=== PATIENT | female | born 1950 | race Caucasian/White ===

== ENCOUNTER 2021-07-03 13:50 | Inpatient (IN) | payer MEDICARE, SELFPAY ==
[2021-07-03] MEDS ORDERED: Carbidopa/Levodopa 10-100 mg Tablet PO SCH (15:15)
[2021-07-03] MEDS ORDERED: Docusate 100 MG CAP PO PRN (15:19)
[2021-07-03] MEDS ORDERED: Acetaminophen/Codeine 30-300mg Tablet PO PRN (15:19)
[2021-07-03] MEDS ORDERED: Loperamide HCl 2 MG CAP PO PRN (15:19)
[2021-07-03] MEDS ORDERED: Nitroglycerin 0.4 MG TAB (25 Tab Bottle) SL PRN (15:19)
[2021-07-03] MEDS ORDERED: Loratadine 10 MG TAB PO PRN (15:19)
[2021-07-03] MEDS ORDERED: ALPRAZolam 0.25 MG TAB PO PRN (15:19)
[2021-07-03] MEDS ORDERED: Acetaminophen 325 MG TAB PO PRN (15:19)
[2021-07-03] MEDS ORDERED: Furosemide 40 MG TAB PO SCH ×2 (15:35→17:50)
[2021-07-03] MEDS: Carbidopa/Levodopa 10-100 mg Tablet PO SCH ×2 (18:01→22:01)
[2021-07-03] MEDS: Potassium Chloride 20 MEQ TAB PO SCH (18:01)
[2021-07-03 19:08] VITALS: BMI 47.2
[2021-07-03] MEDS: Gabapentin 100 MG CAP PO SCH (22:01)
[2021-07-03] MEDS: busPIRone HCl 5 MG TAB PO SCH (22:02)
[2021-07-03] MEDS: Topiramate 100 MG TAB PO SCH (22:08)
[2021-07-04 04:42] LABS: #Eosinphils 0.3 thou/uL (0.0-0.7); #Lymphocytes 1.7 thou/uL (1.20-3.40); #Monocytes 0.5 thou/uL (0.11-0.59); #Neutrophils 2.7 thou/uL (1.40-6.50); %Basophils 0.8 % (0.0-1.0); %Eosinophils 5.1 % (0.0-10.0); %Lymphocytes 33.4 % (21.0-51.0); %Monocytes 9.3 % (0.0-10.0); %Neutrophils 51.4 % (42.0-75.0); Hemoglobin 11.8 g/dL (12.0-16.0); Mean Corpuscular HGB CONC 32.5 g/dL (32.0-36.0); Mean Corpuscular Hemoglobin 33.1 pg (27.0-31.0); Mean Platelet Volume 6.9 fL (7.4-10.4); Platelet Count 239 thou/uL (130-400); RBC Distribution Width 13.3 % (11.5-14.5); Red Blood Cell (RBC) Count 3.55 mill/uL (4.20-5.40); White Blood Cell (WBC) Count 5.2 thou/uL (4.8-10.8)
[2021-07-04 05:05] LABS: Anion Gap 13 mmol/L (10-20); BUN (Urea Nitrogen) 29 mg/dL (9.8-20.1); Calc. Creatinine Clearance 82 mL/min (70-130); Calcium 8.9 mg/dL (7.8-10.44); Carbon Dioxide 30 mmol/L (23-31); Chloride 100 mmol/L (98-107); Glucose 151 mg/dL (83-110); Potassium 3.9 mmol/L (3.5-5.1); Sodium 139 mmol/L (136-145)
[2021-07-04] MEDS: Levothyroxine Sodium 50 MCG TAB PO SCH (05:35)
[2021-07-04] MEDS: Enoxaparin Sodium 40 MG/0.4 ML SYRINGE SC SCH (12:04)
[2021-07-04] MEDS: Aspirin 81 mg Enteric Coated Tablet PO SCH (12:04)
[2021-07-04] MEDS: Carbidopa/Levodopa 10-100 mg Tablet PO SCH ×4 (12:04→21:22)
[2021-07-04] MEDS: Gabapentin 100 MG CAP PO SCH ×3 (12:05→21:22)
[2021-07-04] MEDS: Fenofibrate 48 MG TAB PO SCH (12:05)
[2021-07-04] MEDS: Venlafaxine HCl XR 150 MG CAP PO SCH (12:05)
[2021-07-04] MEDS: FLUoxetine HCl 20 MG CAP PO SCH (12:05)
[2021-07-04] MEDS: Furosemide 40 MG TAB PO SCH ×2 (12:06→15:15)
[2021-07-04] MEDS: Potassium Chloride 20 MEQ TAB PO SCH ×3 (12:06→17:36)
[2021-07-04] MEDS: Allopurinol 100 MG TAB PO SCH (12:06)
[2021-07-04] MEDS: Topiramate 100 MG TAB PO SCH ×2 (12:07→21:23)
[2021-07-04] MEDS: Aripiprazole 10 MG TAB PO SCH (12:43)
[2021-07-04] MEDS: Primidone 50 MG TAB PO SCH (12:43)
[2021-07-04] MEDS: busPIRone HCl 5 MG TAB PO SCH ×3 (12:44→21:23)
[2021-07-04] MEDS ORDERED: Regadenoson 0.4 MG/5 ML SYRINGE ONE (14:37)
[2021-07-04 22:05] LABS: SARS-CoV-2 PCR by NAA Not Detected (NotDetected)
[2021-07-05] MEDS: Levothyroxine Sodium 50 MCG TAB PO SCH (05:57)
[2021-07-05] MEDS: Carbidopa/Levodopa 10-100 mg Tablet PO SCH ×2 (10:20→15:39)
[2021-07-05] MEDS: Aspirin 81 mg Enteric Coated Tablet PO SCH (10:20)
[2021-07-05] MEDS: Enoxaparin Sodium 40 MG/0.4 ML SYRINGE SC SCH (10:20)
[2021-07-05] MEDS: Venlafaxine HCl XR 150 MG CAP PO SCH (10:21)
[2021-07-05] MEDS: Gabapentin 100 MG CAP PO SCH ×2 (10:21→15:39)
[2021-07-05] MEDS: Allopurinol 100 MG TAB PO SCH (10:21)
[2021-07-05] MEDS: Fenofibrate 48 MG TAB PO SCH (10:21)
[2021-07-05] MEDS: FLUoxetine HCl 20 MG CAP PO SCH (10:21)
[2021-07-05] MEDS: Potassium Chloride 20 MEQ TAB PO SCH ×2 (10:22→11:58)
[2021-07-05] MEDS: Furosemide 40 MG TAB PO SCH ×2 (10:22→15:39)
[2021-07-05] MEDS: Aripiprazole 10 MG TAB PO SCH (10:22)
[2021-07-05] MEDS: Topiramate 100 MG TAB PO SCH (10:23)
[2021-07-05] MEDS: busPIRone HCl 5 MG TAB PO SCH ×2 (10:23→15:39)
[2021-07-05] MEDS: Primidone 50 MG TAB PO SCH (10:30)
[2021-07-05 15:38] VITALS: BP 139/76; TEMP 98.6
[2021-07-05] MEDS ORDERED: Carbidopa/Levodopa 10-100 mg Tablet PO SCH (17:00)
== END 2021-07-05 16:35 | disposition home or self-care (01) | DRG 313 ==
LOC: 2NO 13:50 → OBSVTOIN 15:19
PROVIDERS: ADMIT Family Medicine; ATTEND Internal Medicine
DX: R07.89 Other chest pain (principal); N39.0 Urinary tract infection, site not specified; Z68.42 Body mass index [BMI] 45.0-49.9, adult; G20 Parkinson's disease; J44.9 Chronic obstructive pulmonary disease, unspecified; I25.10 Atherosclerotic heart disease of native coronary artery without angina pectoris; E03.9 Hypothyroidism, unspecified; M10.9 Gout, unspecified; F41.9 Anxiety disorder, unspecified; E66.01 Morbid (severe) obesity due to excess calories; E11.51 Type 2 diabetes mellitus with diabetic peripheral angiopathy without gangrene; K21.9 Gastro-esophageal reflux disease without esophagitis; R56.9 Unspecified convulsions; E11.69 Type 2 diabetes mellitus with other specified complication; F39 Unspecified mood [affective] disorder; Z20.822 Contact with and (suspected) exposure to COVID-19; Z99.3 Dependence on wheelchair; Z86.16 Personal history of COVID-19; Z90.49 Acquired absence of other specified parts of digestive tract; Z90.710 Acquired absence of both cervix and uterus; Z85.528 Personal history of other malignant neoplasm of kidney; Z88.1 Allergy status to other antibiotic agents; Z88.0 Allergy status to penicillin; Z88.2 Allergy status to sulfonamides; Z88.8 Allergy status to other drugs, medicaments and biological substances
CPT/HCPCS: 36415; 71045; 78452; 80048; 85025; 86140; 93017; 93306; 94760; A9500; J1650; J2785; U0003; U0005

== ENCOUNTER 2021-07-07 16:43 | Emergency (ER) | payer MEDICARE | END 2021-07-07 19:04 | disposition home or self-care (01) | LOC: ERS 16:43 | DX: T14.8XXA Other injury of unspecified body region, initial encounter (principal); E66.01 Morbid (severe) obesity due to excess calories; M10.9 Gout, unspecified; M19.90 Unspecified osteoarthritis, unspecified site; E11.9 Type 2 diabetes mellitus without complications; G20 Parkinson's disease; G47.30 Sleep apnea, unspecified; W19.XXXA Unspecified fall, initial encounter; Z85.528 Personal history of other malignant neoplasm of kidney; Z86.16 Personal history of COVID-19; Z87.891 Personal history of nicotine dependence ==

== ENCOUNTER 2024-03-28 23:34 | Inpatient (IN) | payer MEDICARE ==
[2024-03-29 00:59] LABS: #Basophils 0.07 10x3/uL (0.0-0.2); %Basophils 0.7 % (0.0-1.0); %Eosinophils 0.9 % (0.0-10.0); %Monocytes 4.5 % (0.0-10.0); Hematocrit 37.4 % (36.0-47.0); Hemoglobin 11.9 g/dL (12.0-16.0); Mean Corpuscular HGB CONC 31.8 g/dL (32.0-36.0); Mean Corpuscular Hemoglobin 30.5 pg (27.0-31.0); Mean Corpuscular Volume 95.9 fL (78.0-98.0); Mean Platelet Volume 9.9 fL (7.4-10.4); Platelet Count 332 10x3/uL (130-400); RBC Distribution Width 16.3 % (11.5-14.5)
[2024-03-29 01:20] LABS: Troponin I 0.041 ng/mL (< 0.028)
[2024-03-29 01:25] LABS: ALT (SGPT) Less than 5 U/L (8-55); AST (SGOT) 10 U/L (5-34); Albumin 2.6 g/dL (3.4-4.8); Alkaline Phosphatase 288 U/L (40-110); Anion Gap 14 mmol/L (10-20); BUN (Urea Nitrogen) 11 mg/dL (9.8-20.1); Bilirubin, Total 0.7 mg/dL (0.2-1.2); Calc. Creatinine Clearance 0 mL/min (70-130); Calcium 8.3 mg/dL (7.8-10.44); Carbon Dioxide 26 mmol/L (23-31); Chloride 106 mmol/L (98-107); Estimated GFR 78; Globulin 3.4 g/dL (2.4-3.5); Glucose 126 mg/dL (83-110); Lipase 16 U/L (8-78); Potassium 2.9 mmol/L (3.5-5.1); Sodium 143 mmol/L (136-145)
[2024-03-29] MEDS ORDERED: Magnesium 2 GM/50 ML BAG (IN WATER) ONE (02:31)
[2024-03-29] MEDS ORDERED: Aspirin Chewable 81 MG TAB ONE (02:31)
[2024-03-29] MEDS ORDERED: Potassium Bicarbonate/Cit Ac 20 MEQ TAB ONE (02:31)
[2024-03-29 05:17] VITALS: BMI 32.5
[2024-03-29] MEDS ORDERED: Ondansetron PF 4 MG/2 ML Vial IVP PRN (08:14)
[2024-03-29] MEDS ORDERED: Ipratropium/Albuterol 3 ML NEB NEB PRN (08:16)
[2024-03-29 08:41] LABS: Troponin I 0.028 ng/mL (< 0.028)
[2024-03-29] MEDS: Enoxaparin 40 MG (0.4 mL) SYRINGE SC SCH (08:52)
[2024-03-29] MEDS: Carbidopa/Levodopa 10-100 mg Tablet PO SCH (08:53)
[2024-03-29] MEDS: Pantoprazole DR 40 MG TAB PO SCH (08:53)
[2024-03-29] MEDS: Allopurinol 100 MG TAB PO SCH (08:54)
[2024-03-29] MEDS: Acetaminophen 325 MG TAB PO SCH (08:54)
[2024-03-29] MEDS: FLUoxetine HCl 20 MG CAP PO SCH (08:54)
[2024-03-29] MEDS: Topiramate 100 MG TAB PO SCH (08:54)
[2024-03-29] MEDS: methylPREDNISolone Sod Succ 40 MG VIAL IVP SCH (08:55)
[2024-03-29] MEDS: Benztropine 1 MG TAB PO SCH (08:55)
[2024-03-29] MEDS: busPIRone HCl 5 MG TAB PO SCH (08:56)
[2024-03-29 09:41] LABS: Magnesium 1.1 mg/dL (1.6-2.6); Potassium 2.7 mmol/L (3.5-5.1)
[2024-03-29] MEDS: Ipratropium/Albuterol 3 ML NEB NEB SCH (10:16)
[2024-03-29] MEDS ORDERED: Electrolyte Replacement Protocol 1 EACH FS PRN (12:02)
[2024-03-29] MEDS ORDERED: Electrolyte Replacement Protocol FS PRN (12:15)
[2024-03-29] MEDS: Potassium Chloride 20 MEQ TAB PO SCH (12:30)
[2024-03-29] MEDS: Magnesium Sulfate In Water 4 GM in Premix 1 BAG IVPB SCH (12:30)
[2024-03-29] MEDS: Primidone 50 MG TAB PO SCH (20:28)
[2024-03-29 22:27] LABS: Anion Gap 18 mmol/L (10-20); BUN (Urea Nitrogen) 14 mg/dL (9.8-20.1); Calc. Creatinine Clearance 100 mL/min (70-130); Carbon Dioxide 24 mmol/L (23-31); Chloride 103 mmol/L (98-107); Estimated GFR 78; Glucose 166 mg/dL (83-110); Magnesium 1.9 mg/dL (1.6-2.6); Potassium 4.2 mmol/L (3.5-5.1); Sodium 141 mmol/L (136-145)
[2024-03-30] MEDS: Lorazepam 0.5 MG TAB PO SCH (00:21)
[2024-03-30] MEDS: Magnesium 2 GM/50 ML(in water) 2 GM in Premix 1 BAG IVPB SCH (00:21)
[2024-03-30 04:42] LABS: Anion Gap 14 mmol/L (10-20); BUN (Urea Nitrogen) 15 mg/dL (9.8-20.1); Calc. Creatinine Clearance 98 mL/min (70-130); Calcium 8.8 mg/dL (7.8-10.44); Carbon Dioxide 25 mmol/L (23-31); Chloride 104 mmol/L (98-107); Estimated GFR 76; Glucose 143 mg/dL (83-110); Magnesium 2.5 mg/dL (1.6-2.6); Potassium 4.2 mmol/L (3.5-5.1); Sodium 139 mmol/L (136-145)
[2024-03-30] MEDS: Levothyroxine Sodium 50 MCG TAB PO SCH (05:50)
[2024-03-30 06:18] LABS: #Basophils Less than 0.03 10x3/uL (0.0-0.2); #Eosinphils Less than 0.03 10x3/uL (0.0-0.7); %Basophils 0.1 % (0.0-1.0); %Lymphocytes 8.5 % (21.0-51.0); %Monocytes 1.8 % (0.0-10.0); %Neutrophils 87.6 % (42.0-75.0); Hematocrit 39.4 % (36.0-47.0); Hemoglobin 12.3 g/dL (12.0-16.0); Mean Corpuscular HGB CONC 31.2 g/dL (32.0-36.0); Mean Corpuscular Hemoglobin 30.6 pg (27.0-31.0); Mean Platelet Volume 9.8 fL (7.4-10.4); Platelet Count 319 10x3/uL (130-400); RBC Distribution Width 16.5 % (11.5-14.5); Red Blood Cell (RBC) Count 4.02 mill/uL (4.20-5.40)
[2024-03-30] MEDS: Furosemide 40 MG (4 mL) VIAL SLOW IVP SCH (10:38)
[2024-03-30 13:21] VITALS: BMI 32.5
[2024-03-30] MEDS: Acetaminophen 325 MG TAB PO PRN (17:53)
[2024-03-31 04:28] LABS: #Basophils Less than 0.03 10x3/uL (0.0-0.2); #Eosinphils Less than 0.03 10x3/uL (0.0-0.7); %Lymphocytes 6.6 % (21.0-51.0); %Monocytes 2.3 % (0.0-10.0); %Neutrophils 90.1 % (42.0-75.0); Hemoglobin 11.3 g/dL (12.0-16.0); Mean Corpuscular HGB CONC 31.4 g/dL (32.0-36.0); Mean Corpuscular Hemoglobin 31.3 pg (27.0-31.0); Mean Corpuscular Volume 99.7 fL (78.0-98.0); Mean Platelet Volume 9.8 fL (7.4-10.4); Platelet Count 270 10x3/uL (130-400); RBC Distribution Width 16.2 % (11.5-14.5); Red Blood Cell (RBC) Count 3.61 mill/uL (4.20-5.40)
[2024-03-31 05:00] LABS: Anion Gap 12 mmol/L (10-20); BUN (Urea Nitrogen) 23 mg/dL (9.8-20.1); Calc. Creatinine Clearance 92 mL/min (70-130); Calcium 8.6 mg/dL (7.8-10.44); Carbon Dioxide 25 mmol/L (23-31); Chloride 104 mmol/L (98-107); Estimated GFR 71; Glucose 179 mg/dL (83-110); Potassium 3.7 mmol/L (3.5-5.1); Sodium 137 mmol/L (136-145)
[2024-03-31] MEDS: Acetaminophen/Codeine 30-300mg Tablet PO PRN (06:03)
[2024-03-31] MEDS: Furosemide 40 MG (4 mL) VIAL SLOW IVP SCH (08:15)
[2024-04-01 04:58] LABS: #Basophils Less than 0.03 10x3/uL (0.0-0.2); #Eosinphils Less than 0.03 10x3/uL (0.0-0.7); %Lymphocytes 3.7 % (21.0-51.0); %Monocytes 2.5 % (0.0-10.0); %Neutrophils 91.8 % (42.0-75.0); Hematocrit 35.5 % (36.0-47.0); Hemoglobin 11.2 g/dL (12.0-16.0); Mean Corpuscular HGB CONC 31.5 g/dL (32.0-36.0); Mean Corpuscular Hemoglobin 31.8 pg (27.0-31.0); Mean Corpuscular Volume 100.9 fL (78.0-98.0); Mean Platelet Volume 10.2 fL (7.4-10.4); Platelet Count 267 10x3/uL (130-400); RBC Distribution Width 16.2 % (11.5-14.5); Red Blood Cell (RBC) Count 3.52 mill/uL (4.20-5.40)
[2024-04-01 05:23] LABS: Anion Gap 13 mmol/L (10-20); BUN (Urea Nitrogen) 29 mg/dL (9.8-20.1); Calc. Creatinine Clearance 95 mL/min (70-130); Calcium 8.4 mg/dL (7.8-10.44); Carbon Dioxide 26 mmol/L (23-31); Chloride 101 mmol/L (98-107); Estimated GFR 74; Glucose 169 mg/dL (83-110); Potassium 3.8 mmol/L (3.5-5.1); Sodium 136 mmol/L (136-145)
[2024-04-02 05:23] LABS: #Basophils Less than 0.03 10x3/uL (0.0-0.2); #Eosinphils Less than 0.03 10x3/uL (0.0-0.7); %Lymphocytes 4.4 % (21.0-51.0); %Monocytes 4.4 % (0.0-10.0); %Neutrophils 89.8 % (42.0-75.0); Hematocrit 36.4 % (36.0-47.0); Hemoglobin 11.3 g/dL (12.0-16.0); Mean Corpuscular Volume 99.7 fL (78.0-98.0); Mean Platelet Volume 10.1 fL (7.4-10.4); Platelet Count 257 10x3/uL (130-400); RBC Distribution Width 15.9 % (11.5-14.5); Red Blood Cell (RBC) Count 3.65 mill/uL (4.20-5.40)
[2024-04-02 05:39] LABS: Anion Gap 13 mmol/L (10-20); BUN (Urea Nitrogen) 30 mg/dL (9.8-20.1); Calc. Creatinine Clearance 105 mL/min (70-130); Calcium 8.8 mg/dL (7.8-10.44); Carbon Dioxide 28 mmol/L (23-31); Chloride 100 mmol/L (98-107); Estimated GFR 84; Glucose 134 mg/dL (83-110); Potassium 4.1 mmol/L (3.5-5.1); Sodium 137 mmol/L (136-145)
[2024-04-02] MEDS: Furosemide 40 MG (4 mL) VIAL SLOW IVP SCH (06:11)
[2024-04-02 15:56] VITALS: BP 152/70; TEMP 99
== END 2024-04-02 17:04 | DRG 640 ==
LOC: ERS 23:34 → 2NO 03-29 02:51 → OBSVTOIN 03-29 12:36
PROVIDERS: ADMIT Internal Medicine; ATTEND Internal Medicine
DX: E87.6 Hypokalemia (principal); I50.33 Acute on chronic diastolic (congestive) heart failure; J44.1 Chronic obstructive pulmonary disease with (acute) exacerbation; N17.9 Acute kidney failure, unspecified; I24.89 Other forms of acute ischemic heart disease; I25.10 Atherosclerotic heart disease of native coronary artery without angina pectoris; G20.A1 Parkinson's disease without dyskinesia, without mention of fluctuations; Z66 Do not resuscitate; E03.9 Hypothyroidism, unspecified; M10.9 Gout, unspecified; F41.9 Anxiety disorder, unspecified; G40.909 Epilepsy, unspecified, not intractable, without status epilepticus; E11.51 Type 2 diabetes mellitus with diabetic peripheral angiopathy without gangrene; E83.42 Hypomagnesemia; L89.159 Pressure ulcer of sacral region, unspecified stage; G47.33 Obstructive sleep apnea (adult) (pediatric); M19.90 Unspecified osteoarthritis, unspecified site; E88.09 Other disorders of plasma-protein metabolism, not elsewhere classified; F32.A Depression, unspecified; Z99.81 Dependence on supplemental oxygen; Z79.899 Other long term (current) drug therapy; Z88.1 Allergy status to other antibiotic agents; Z85.528 Personal history of other malignant neoplasm of kidney; Z88.5 Allergy status to narcotic agent; Z88.0 Allergy status to penicillin; Z79.890 Hormone replacement therapy; Z99.3 Dependence on wheelchair; Z90.49 Acquired absence of other specified parts of digestive tract; Z90.722 Acquired absence of ovaries, bilateral; Z87.891 Personal history of nicotine dependence
CPT/HCPCS: 36415; 36416; 71045; 80048; 80053; 83036; 83690; 83735; 83880; 84145; 84484; 85025; 93005; 93306; 94640; 96365; 96375; 96376; 97139; G0378; J1650; J1940; J2920; J3475; J7620